=== PATIENT | female | born 1980 | race Hispanic/Latino ===

== ENCOUNTER 2019-09-14 13:06 | Emergency (ER) | payer BC, OTHER ==
[2019-09-14] MEDS ORDERED: Ibuprofen 600 MG TAB ONE (13:25)
--- NOTE | 2019-09-14 15:28 | RAD ---
THREE VIEWS RIGHT ANKLE: 09/14/19 PROVIDED CLINICAL HISTORY: Pain status post injury. FINDINGS: Corticated ossific density adjacent to the tip of the medial malleolus likely reflects accessory cent er of ossification. Lateral malleolar soft tissue swelling without definite evidence for fracture. Al ignment appears anatomic. Joint spaces appear preserved. IMPRESSION: No definite evidence for an acute osseous abnormality. If there is persistent clinical concern, conse rvative management and follow-up imaging are advised. POS: [facility]
== END 2019-09-14 13:57 | disposition home or self-care (01) ==
LOC: MADERS 13:06
DX: S82.891A Other fracture of right lower leg, initial encounter for closed fracture (principal); X50.1XXA Overexertion from prolonged static or awkward postures, initial encounter
CPT/HCPCS: 29515

== ENCOUNTER 2021-03-26 10:33 | Emergency (ER) | payer OTHER ==
[2021-03-26] MEDS ORDERED: Ondansetron PF 4 MG/2 ML Vial ONE ×2 (11:07→12:59)
[2021-03-26] MEDS ORDERED: Ketorolac Tromethamine 30 MG/ML VIAL ONE (11:07)
[2021-03-26 11:17] LABS: #Basophils 0.2 thou/uL (0.0-0.2); #Eosinphils 0.1 thou/uL (0.0-0.7); #Monocytes 0.6 thou/uL (0.11-0.59); #Neutrophils 8.9 thou/uL (1.40-6.50); %Basophils 1.2 % (0.0-1.0); %Eosinophils 0.6 % (0.0-10.0); %Lymphocytes 28.8 % (21.0-51.0); %Monocytes 4.3 % (0.0-10.0); %Neutrophils 65.1 % (42.0-75.0); Mean Corpuscular HGB CONC 32.4 g/dL (32.0-36.0); Mean Corpuscular Hemoglobin 28.7 pg (27.0-31.0); Mean Corpuscular Volume 88.4 fL (78.0-98.0); Mean Platelet Volume 8.2 fL (7.4-10.4); Platelet Count 309 thou/uL (130-400); RBC Distribution Width 12.6 % (11.5-14.5); Red Blood Cell (RBC) Count 4.52 mill/uL (4.20-5.40); White Blood Cell (WBC) Count 13.7 thou/uL (4.8-10.8)
[2021-03-26] MEDS ORDERED: Sodium Chloride 0.9% 1,000 ML ONE (11:21)
[2021-03-26 11:33] LABS: ALT (SGPT) 30 U/L (8-55); AST (SGOT) 24 U/L (5-34); Alkaline Phosphatase 88 U/L (40-110); Anion Gap 14 mmol/L (10-20); BUN (Urea Nitrogen) 16 mg/dL (7.0-18.7); Bilirubin, Total 0.4 mg/dL (0.2-1.2); Calc. Creatinine Clearance 0 mL/min (70-130); Calcium 8.9 mg/dL (7.8-10.44); Carbon Dioxide 22 mmol/L (22-29); Chloride 104 mmol/L (98-107); Globulin 3.3 g/dL (2.4-3.5); Glucose 99 mg/dL (70-105); Potassium 3.4 mmol/L (3.5-5.1); Protein, Total 7.3 g/dL (6.0-8.3); Sodium 137 mmol/L (136-145)
[2021-03-26 12:02] LABS: Bilirubin Negative (Negative); Blood, Urine Large (Negative); Clarity Cloudy (Clear); Glucose, Urine (Dipstick) Negative (Negative); Ketone, Urine Trace mg/dL (Negative); Leukocyte Negative (Negative); Nitrite Negative (Negative); Protein, Urine (Dipstick) Trace mg/dL (Neg-Trace); Urobilinogen 0.2 mg/dL (Less than 2)
[2021-03-26 12:03] LABS: Pregnancy Test - Urine (BHCG) Negative (Negative); Pregu Control Background? CLEAR/WHITE (CLR/WHITE); Pregu Control Bar Appear? YES (CONTROL BAR)
[2021-03-26 12:11] LABS: RBC/HPF Greater than 50 HPF (0-3)
[2021-03-26 12:12] LABS: Bacteria/HPF Rare-Few HPF (None Seen); Squamous Epithelial 0-3 HPF (0-3); WBC/HPF 0-3 HPF (0-3)
[2021-03-26] MEDS ORDERED: Lidocaine 2% PF 100 mg/5 ml Syringe ONE ×2 (13:32→13:33)
== END 2021-03-26 17:10 | disposition home or self-care (01) ==
LOC: MADERS 10:33
DX: N20.2 Calculus of kidney with calculus of ureter (principal)
CPT/HCPCS: 74176; 80053; 81003; 81015; 81025; 85025; 96374; 96375; 96376; J1885; J2001; J2405; J7050